=== PATIENT | female | born 1985 ===

== ENCOUNTER 2017-09-24 07:18 | Emergency (ER) | payer OTHER ==
[~2017-09-24] VITALS: Ht 177.8 cm; Wt 113.4 kg
[2017-09-24] MEDS ORDERED: SYNTHROID175 MCG (07:38)
== END 2017-09-24 11:42 | disposition home or self-care (01) ==
LOC: ER 07:18
DX: O20.0 Threatened abortion (principal); Z34.01 Encounter for supervision of normal first pregnancy, first trimester

== ENCOUNTER 2018-03-07 11:45 | Outpatient (CLI) | payer OTHER ==
[~2018-03-07 11:45] MED LIST: SYNTHROID175 MCG
== END 2018-03-07 12:56 | disposition home or self-care (01) ==
LOC: NST 11:45
DX: Z34.83 Encounter for supervision of other normal pregnancy, third trimester (principal)

== ENCOUNTER 2018-03-27 09:30 | Outpatient (CLI) | payer OTHER | END 2018-03-27 10:33 | disposition home or self-care (01) | LOC: NST 09:30 | DX: Z34.83 Encounter for supervision of other normal pregnancy, third trimester (principal) ==

== ENCOUNTER 2018-03-27 10:30 | Inpatient (IN) | payer OTHER ==
[~2018-03-27] VITALS: Ht 180.3 cm; Wt 3.2 kg
[2018-04-15] MEDS ORDERED: PRENATAL TABLE1 EAC1 PO (13:36)
== END 2018-04-18 16:06 | DRG 788 ==
LOC: OB/GYN 10:30 → LDR 04-15 09:26 → OB/GYN 04-15 09:26
PROVIDERS: ADMIT Obstetrics & Gynecology Maternal & Fetal Medicine
PROC: 3E033VJ Introduction of Other Hormone into Peripheral Vein, Percutaneous Approach (ICD-10-PCS; 2018-04-15)
PROC: 4A1HXCZ Monitoring of Products of Conception, Cardiac Rate, External Approach (ICD-10-PCS; 2018-04-15)
PROC: 10D00Z1 Extraction of Products of Conception, Low, Open Approach (ICD-10-PCS; principal; 2018-04-15 14:00)
DX: O61.0 Failed medical induction of labor (principal); Z3A.38 38 weeks gestation of pregnancy; Z37.0 Single live birth

== ENCOUNTER 2018-04-10 10:06 | Outpatient (CLI) | payer OTHER | END 2018-04-10 11:01 | disposition home or self-care (01) | LOC: NST 10:06 | DX: Z34.83 Encounter for supervision of other normal pregnancy, third trimester (principal) ==